=== PATIENT | female | born 2000 | race Caucasian/White ===

== ENCOUNTER 2022-01-28 20:36 | Emergency (ER) | payer MEDICAID, SELFPAY ==
[2022-01-28 20:46] VITALS: BP 131/73; PULSE 89; RESP 18; TEMP 36.5; O2SAT 100
--- NOTE | 2022-01-28 21:20 | ED.SKABFB ---
HPI - Skin/Abscess/Foreign Bdy General Chief complaint: Skin/Abscess/Foreign Body Stated complaint: possible infection in L sided abd Time Seen by Provider: 01/28/22 20:40 Source: patient, family and RN notes reviewed Mode of arrival: ambulatory Limitations: no limitations History of Present Illness complaint: insect bite/sting (left abdominal wall) Onset (ago): day(s) (2) Tetanus up to date: unsure Severity: mild Quality: aching Pain Consistency: constant Relieving factors: none Exacerbating factors: none Context: other (possible insect bite) Associated symptoms: denies other symptoms Treatments prior to arrival: none Related Data Allergies Allergy/AdvReac Type Severity Reaction Status Date / Time No Known Allergies Allergy Verified 01/28/22 20:54 Review of Systems Review of Systems: All systems reviewed & are unremarkable except as noted in HPI and below Constitutional: Constitutional: Reports no additional constitutional complaints Eyes: Eyes: Reports no additional eye complaints ENT: Reports system reviewed and no additional complaints, except as documented Cardiovascular: Cardiovascular: Reports no additional cardiovascular complaints Respiratory: Respiratory: Reports no additional respiratory complaints Gastrointestinal: Comments: left abdominal wall infection Genitourinary: Genitourinary: Reports no additional female genitourinary complaints Musculoskeletal: Musculoskeletal: Reports no additional musculoskeletal complaints Integumentary/Breasts: Skin/Breast: Reports system reviewed and no additional complaints, except as docu Neurologic: Reports system reviewed and no additional complaints, except as documented Psychiatric: Psychiatric: Reports no additional psychiatric complaints Endocrine: Endocrine: Reports no additional endocrine complaints Hematologic/Lymphatic: Hematologic/Lymphatic: Reports no additional hematologic/lymphatic complaints Allergic/Immunologic: Allergic/Immunologic: Reports no additional allergic/immunologic complaints PMFSH Past Medical History Medical History Cellulitis of left abdominal wall Exam Const: General: healthy appearing and no acute distress Nutritional Appearance: well nourished Orientation/consciousness: patient oriented x3 Limitations: no limitations HENMT: Head: normal to inspection Ears: external ears normal, TM's normal bilaterally and EAC's normal General nose exam: Normal external nose present and Normal nares present Face and sinus: normal facial exam and sinuses nontender Mouth: Yes Normal oral and palatal mucosa present and Yes moist mucous membranes Teeth and gingiva: dentition normal Throat: posterior oropharynx normal Eyes: Conjunctivae: conjunctivae normal Pupils: Equal, round and reactive pupils present EOM: EOMs intact bilaterally Neck: Neck: normal visual inspection, no lymphadenopathy and no meningeal signs Chest: Chest palpation & inspection: normal inspection of the chest Resp: Effort & Inspection: normal respiratory effort Auscultation: clear to auscultation bilaterally Cardio: Rate: regular rate Rhythm: regular rhythm GI: GI Palp: Yes Soft to palpation and Yes Tenderness to palpation present (GI) (left abdominal wall minimally red 3cm diameter w/o acute swelling or pus dr) Auscultation: normal bowel sounds : General: Yes bladder normal to palpation and Yes no CVA tenderness Bimanual exam- vagina & uterus: bladder normal to palpation Back/Spine/Pelvis: Back: no CVA tenderness Skin: General skin exam: normal color Rashes: no rashes Wounds: no wounds Neuro: General: patient oriented x3, moves all extremities, no meningeal signs, no focal motor deficits and CN's II-XI intact bilaterally Cranial nerves: Yes Equal, round and reactive pupils present and Yes Nystagmus not present Speech: normal speech Gait exam (Neuro): Normal gait present Extrem: General: n
[2022-01-28] MEDS: IBUPROFEN 400 MG TABLET 800 MG PO (21:25)
[2022-01-28] MEDS: TETANUS,DIPHTHERIA,AC PERTUSSIS ADULT 0.5 ML (ADACEL) IM (21:26)
[2022-01-28 21:42] VITALS: BP 122/73; PULSE 81; RESP 16; TEMP 36.4; O2SAT 99
== END 2022-01-28 21:47 | disposition home or self-care (01) ==
PROVIDERS: Emergency Provider Emergency Medicine
DX: L03.311 Cellulitis of abdominal wall (principal)
CPT/HCPCS: 90471; 90715; 99283; A9270

== ENCOUNTER 2022-04-14 06:21 | Emergency (ER) | payer SELFPAY ==
--- NOTE | ~2022-04-14 | CT_ITS ---
EXAMINATION: CT abdomen pelvis wo con DATE: 04/14/2022 08:30 INDICATION: Abdominal pain. TECHNIQUE: Computed tomography (CT) of the abdomen and pelvis was performed without intravenous contr ast. The dose-length product was 960.96 mGy-cm. Automated exposure control and iterative reconstructi on technique were employed. COMPARISON: None. FINDINGS: Lung bases are unremarkable. Heart size normal. No significant pleural or pericardial effus ion. The liver, spleen, pancreas, adrenal glands and kidneys are unremarkable for noncontrast CT. Gal lbladder is present. Nonobstructive bowel gas pattern. There are ileocolic lymph nodes were which are abnormal in number and size, likely reactive. Colonic diverticulosis without evidence for diverticul itis. No free air or free fluid. Nonobstructive bowel. The liver, spleen, pancreas, adrenal glands and kidneys are unremarkable. Gallbladder is present. No renal stones. No ureteral stones or hydronephrosis. Normal appendix. No acute osseous abnormality. IMPRESSION: 1. No acute abnormality. No findings to account for patient's symptoms. 2: Enlarged ileocolic lymph nodes, likely reactive. Reviewed, dictated and finalized at location A. [employer]
[2022-04-14 06:24] VITALS: BP 134/101; PULSE 96; RESP 16; TEMP 36.6; O2SAT 100
--- NOTE | 2022-04-14 06:45 | ECG_ITS ---
Measurements Intervals Oral Rate: 85 P: 29 IL: 169 QRS: -7 QRSD: 79 T: 6 QT: 330 QTc: 394 Interpretive Statements SINUS RHYTHM BASELINE ARTIFACT LOW-VOLTAGE QRS IN PRECORDIAL LEADS BORDERLINE ECG NO PREVIOUS ECG AVAILABLE FOR COMPARISON Electronically Signed On 04-14-2022 13:28:48 [facility] by Deng Adkins M.D.
--- NOTE | 2022-04-14 06:48 | ED.ABDPAIN ---
HPI - Abdominal Pain General Chief Complaint: Abdominal Pain <Miguel Joya MD - Last Filed: 04/14/22 06:50> Stated Complaint: abd pain <Miguel Joya MD - Last Filed: 04/14/22 06:50> Time Seen by Provider: 04/14/22 07:53 <Miguel Joya MD - Last Filed: 04/14/22 06:50> Source: patient <Miguel Joya MD - Last Filed: 04/14/22 06:50> Mode of arrival: ambulatory <Miguel Joya MD - Last Filed: 04/14/22 06:50> Limitations: no limitations <Miguel Joya MD - Last Filed: 04/14/22 06:50> History of Present Illness HPI narrative: this is a 21-year-old a 3 day history of abdominal pain periumbilical radiating to her lower back with no dysuria no hematuria no fever chills does have some mild episode of diarrhea with no nausea vomiting no chest pain no shortness of breath. <Miguel Joya MD - Last Filed: 04/14/22 06:50> MD elicited complaint: abdominal pain <Miguel Joya MD - Last Filed: 04/14/22 06:50> Severity: moderate <Miguel Joya MD - Last Filed: 04/14/22 06:50> Pain scale (0-10): 8 <Miguel Joya MD - Last Filed: 04/14/22 06:50> Quality: aching <Miguel Joya MD - Last Filed: 04/14/22 06:50> Radiation: back <Miguel Joya MD - Last Filed: 04/14/22 06:50> Related Data Allergies/Adverse Reactions: Allergies Allergy/AdvReac Type Severity Reaction Status Date / Time No Known Allergies Allergy Verified 04/14/22 09:09 <Miguel Joya MD - Last Filed: 04/14/22 06:50> Review of Systems Review of Systems: All systems reviewed & are unremarkable except as noted in HPI and below <Miguel Joya MD - Last Filed: 04/14/22 06:50> PMFSH Past Medical History Medical History: Medical History Cellulitis of left abdominal wall <Miguel Joya MD - Last Filed: 04/14/22 06:50> Exam Const: General: healthy appearing and no acute distress <Miguel Joya MD - Last Filed: 04/14/22 06:50> Nutritional Appearance: well nourished <Miguel Joya MD - Last Filed: 04/14/22 06:50> Limitations: no limitations <Miguel Joya MD - Last Filed: 04/14/22 06:50> HENMT: Head: normal to inspection <Miguel Joya MD - Last Filed: 04/14/22 06:50> Face/Nose/Sinus: Normal external nose present <Miguel Joya MD - Last Filed: 04/14/22 06:50> Face and sinus: normal facial exam <Miguel Joya MD - Last Filed: 04/14/22 06:50> Mouth: Yes Normal oral and palatal mucosa present <MD Meño Allen Last Filed: 04/14/22 06:50> Teeth and gingiva: dentition normal <Miguel Joya MD - Last Filed: 04/14/22 06:50> Eyes: Conjunctivae: conjunctivae normal <MD Meño Allen Last Filed: 04/14/22 06:50> Pupils: Equal, round and reactive pupils present <Miguel Joya MD - Last Filed: 04/14/22 06:50> EOM: EOMs intact bilaterally <MD Meño Allen Last Filed: 04/14/22 06:50> Neck: Neck: normal visual inspection <Miguel Joya MD - Last Filed: 04/14/22 06:50> Chest: Chest palpation & inspection: normal inspection of the chest <Miguel Joya MD - Last Filed: 04/14/22 06:50> Resp: Effort & Inspection: normal respiratory effort <MD Meño Allen Last Filed: 04/14/22 06:50> Auscultation: clear to auscultation bilaterally <Miguel Joya MD - Last Filed: 04/14/22 06:50> Cardio: Rate: regular rate <Miguel Joya MD - Last Filed: 04/14/22 06:50> Rhythm: regular rhythm <Miguel Joya MD - Last Filed: 04/14/22 06:50> GI: GI Palp: Yes Soft to palpation and Yes Tenderness to palpation present (GI) <Miguel Joya MD - Last Filed: 04/14/22 06:50> : General: Yes bladder normal to palpation <Miguel Joya MD - Last Filed: 04/14/22 06:50> Skin: General skin exam: normal color <Miguel Joya MD - Last Filed: 04/14/22 06:50> Rashes: no rashes
[2022-04-14 07:10] LABS: Basophils Absolute Auto 0.04 K/mm3 (0.00-0.10); Basophils Percent Auto 0.4 % (0.0-1.0); Eosinophils Absolute Auto 0.29 K/mm3 (0.02-0.50); Eosinophils Percent Auto 3.2 % (1.0-6.0); Hematocrit 41.2 % (35.0-49.0); Hemoglobin 13.4 g/dL (12.0-15.0); Immature Granulocyte Absolute 0.04 K/mm3 (0.00-0.00); Immature Granulocyte Percent A 0.4 % (0.0-0.0); Mean Corpuscular HGB Conc 32.5 g/dL (32.0-36.0); Mean Corpuscular Hemoglobin 26.5 pg (27.0-31.0); Mean Corpuscular Volume 81.4 fL (78.0-102.0); Mean Platelet Volume 8.6 fl (9.2-11.8); Monocytes Absolute Auto 0.61 K/mm3 (0.10-0.90); Monocytes Percent Auto 6.7 % (2.0-11.0); Neutrophils Absolute Auto 5.1 K/mm3 (1.7-7.2); Neutrophils Percent Auto 56.3 % (50.0-70.0); Platelet Count Result 388 K/mm3 (150-420); Red Blood Count 5.06 M/mm3 (4.20-5.40); Red Cell Distribution Width 12.9 % (11.6-14.4); White Blood Count 9.1 K/mm3 (4.8-10.8)
[2022-04-14] MEDS: SODIUM CHLORIDE 0.9% IV 1,000 ML 999 ML IV CONT (07:15)
[2022-04-14] MEDS: KETOROLAC 30 MG/ML VIAL (*BKC) IV PUSH (07:16)
[2022-04-14 07:28] LABS: Alanine Aminotransferase 18 U/L (14-59); Albumin Level 3.6 g/dL (3.4-5.0); Alkaline Phosphatase 88 U/L (46-116); Anion Gap 8 mmol/L (8-16); Aspartate Amino Transferase 12 U/L (15-37); Bilirubin,Total 0.2 mg/dL (0.00-1.00); Blood Urea Nitrogen 18 mg/dL (7-18); Calcium 8.1 mg/dL (8.5-10.1); Carbon Dioxide 27 mmol/L (21-32); Chloride 105 mmol/L (98-108); Estimated CRCL calculation 86 ml/min; Estimated Glomerular Filt Rate > 60; Glucose 115 mg/dL (70-99); Lipase 54 U/L (73-393); Osmolality Calculated 292 mOsm/kg (285-295); Potassium 3.4 mmol/L (3.5-5.1); Sodium 140 mmol/L (136-145); Total Protein 6.9 g/dL (6.4-8.2); Troponin I 6.2 ng/L (0.00-60.4)
[2022-04-14 07:31] LABS: Lactic Acid Reflex 0.6 mmol/L (0.4-2.0)
[2022-04-14 08:02] LABS: Appearance Urine Clear (Clear); Bilirubin Urine Negative (Negative); Blood Urine Negative (Negative); Glucose Urine UA Negative (Negative); Ketones Urine Trace (Negative); Leukocyte Esterase Ur Negative LEU/UL (Negative); Nitrate Urine Negative (Negative); Protein Urine Negative (Negative); Specific Grav Ur 1.025 (1.010-1.020); Urobilinogen Urine 0.2 mg/dL (0.2-1.0)
[2022-04-14 08:10] LABS: Add Urine Microscopic? YES; Amorphous Sediment Urine Few; Color Urine Light Yellow (Yellow); Squamous Epithelial Cell Urine Few /hpf (Few)
[2022-04-14 08:11] LABS: Pregnancy On Board Control Positive; Urine Pregnancy Test Negative
[2022-04-14 08:43] VITALS: BP 144/79; PULSE 86; RESP 16; O2SAT 99
== END 2022-04-14 09:16 | disposition home or self-care (01) ==
PROVIDERS: Emergency Medicine; Emergency Provider Emergency Medicine
DX: K52.9 Noninfective gastroenteritis and colitis, unspecified (principal)
CPT/HCPCS: 36415; 74176; 80053; 81001; 81025; 83605; 83690; 84484; 85025; 93005; 96361; 96374; 99284; J1885; J7030